=== PATIENT | female | born 1945 | race Two or more races ===

== ENCOUNTER 2019-08-18 17:24 | Emergency (ER) | payer MEDICARE, OTHER ==
[~2019-08-18] VITALS: Ht 162.6 cm; Wt 59.0 kg
[2019-08-18 17:25] VITALS: BP 166/96
--- NOTE | 2019-08-18 17:25 | NUR ---
ED Nurse Note: Patient RAMILA ARMSTRONG from home c/o right lower abdominal pain radiating to her right lower back started today at 1200. Reports nausea/ vomiting x1. Denies diarrhea. No SOB. Afebrile. Pt placed on vehicle monitor technician.
--- NOTE | 2019-08-18 17:30 | NUR ---
ED Nurse Note: IV line established. Blood specimen collected and sent to lab.
[2019-08-18] MEDS ORDERED: Morphine Sulfate 4mg/ml Inj (IV USE ONLY) ONE (17:39)
[2019-08-18] MEDS ORDERED: Morphine Sulfate 4mg/ml Inj (IV USE ONLY) IVP ONE (17:45)
[2019-08-18] MEDS ORDERED: Omnipaque-300 100ml vial INJ PRN (17:45)
[2019-08-18 17:48] LABS: BASOPHILS % (AUTO) 0.6 % (0.0-2.0); EOSINOPHILS % (AUTO) 0.3 % (0.0-3.0); HEMATOCRIT 47.7 % (37.0-47.0); HEMOGLOBIN 15.1 G/DL (12.0-16.0); LYMPHOCYTES % (AUTO) 12.5 % (20.0-45.0); MEAN CORPUSCULAR VOLUME 96 FL (80-99); MONOCYTES % (AUTO) 2.8 % (1.0-10.0); NEUTROPHILS % (AUTO) 83.8 % (45.0-75.0); PLATELET COUNT 236 K/UL (150-450); RED CELL DISTRIBUTION WIDTH 13.3 % (11.6-14.8); WHITE BLOOD COUNT 17.1 K/UL (4.8-10.8)
--- NOTE | 2019-08-18 17:52 | Emergency Room Report ---
History of Present Illness General Chief Complaint: Abdominal Pain Source: Patient Present Illness HPI Disclaimer: Please note that this report is being documented using [employer] technology. This can lead to erroneous entry secondary to incorrect interpretation by the dictating instrument. HPI: 73-year-old female presents for evaluation of abdominal pain. Pain is localized in the right lower quadrant radiates to the back flank. Started 5 hours ago and denies any exacerbating or relieving symptoms. Pain is 10/10. Denies dysuria or hematuria. Denied nausea and vomiting prior to arrival though had one episode of nonbloody nonbilious emesis on arrival here. Currently reports nausea. Denies recent fever, chills, chest pain, shortness of breath, headaches, rash or skin changes. Does not take any medications. Denies alcohol or drug use. History of hysterectomy. PMH: Denies PSH: Hysterectomy total Allergies: Denies Social Hx: Daily tobacco use Allergies: Coded Allergies: No Known Allergies (Unverified , 08/18/19) COVID-19 Screening Contact w/high risk pt: No Recent Travel to affected area: No Experienced COVID-19 symptoms?: No COVID-19 Testing performed MEDICAL ILLUSTRATOR: No Patient History Last Menstrual Period: na Nursing Documentation-PMH Past Medical History: No Stated History Review of Systems All Other Systems: negative except mentioned in HPI Physical Exam Vital Signs Date Time Temp Pulse Resp B/P (MAP) Pulse Ox O2 Delivery O2 Flow Rate FiO2 08/18/19 17:20 97.9 76 16 166/96 (119) 96 Room Air General: Awake and alert, no acute distress HEENT: NC/AT. EOMI. Cardiovascular: RRR. S1 and S2 normal. No murmur appreciated Resp: Normal work of breathing. No cough, wheezing or crackles appreciated Abdomen: Abdomen is soft, nondistended. Tenderness palpation right lower quadrant. No rebound, no masses. Positive Rovsing and obturator sign. Mild right-sided CVA tenderness. Skin: Intact. No abrasions, laceration or rash over the exposed skin MSK: Normal tone and bulk. Moving all extremities. No obvious deformity. Neuro: Awake and alert. Mentating appropriately. Medical Decision Making Diagnostic Impression: Primary Impression: Nephrolithiasis ER Course 73-year-old female presents with acute onset abdominal pain. Differential includes was not limited to appendicitis, bowel obstruction, constipation, pyelonephritis, nephrolithiasis, UTI, mesenteric ischemia to name a few. The patient was placed in her room, line was obtained, IV fluids, pain medication antiemetic started. Broad labs were sent and the patient sent for a CT scan of the abdomen pelvis. Radiology interpretation finds no clinical evidence of acute appendicitis but a noted 1 mm stone at the right UVJ and mild hydronephrosis. Renal function within normal limits, no evidence of urinary tract infection. Patient was given pain medication here and prescription for Zofran, Motrin and breakthrough pain medication to use as needed on an outpatient basis. Will refer to clinic and urology. Discussed reasons to return to the emergency department. She understands and agrees with treatment plan. Laboratory Tests Test 08/18/19 17:33 08/18/19 18:30 White Blood Count 17.1 K/UL (4.8-10.8) H Red Blood Count 5.00 M/UL (4.20-5.40) Hemoglobin 15.1 G/DL (12.0-16.0) Hematocrit 47.7 % (37.0-47.0) H Mean Corpuscular Volume 96 FL (80-99) Mean Corpuscular Hemoglobin 30.3 PG (27.0-31.0) Mean Corpuscular Hemoglobin Concent 31.7 G/DL (32.0-36.0) L Red Cell Distribution Width 13.3 % (11.6-14.8) Platelet Count 236 K/UL (150-450) Mean Platelet Volume 10.3 FL (6.5-10.1) H Neutrophils (%) (Auto) 83.8 % (45.0-75.0) H Lymphocytes (%) (Auto) 12.5 % (20.0-45.0) L Monocytes (%) (Auto) 2.8 % (1.0-10.0) Eosinophils (%) (Auto) 0.3 % (0.0-3.0) Basophils (%) (Auto) 0.6 % (0.0-2.0) Prothrombin Time 10.4 SEC (9.30-11.50) Prothrombin Time INR 0.9 (0.9-1.1) Activated Partial Thromboplast Time 23 SEC (23-33) Sodium Level 138 MMOL/L (136-145) Potassium Level 4.2 MMOL/L (3.5-5.1) Chloride Level 101 MMOL/L (98-107) Carbon Dioxide Level 26 MMOL/L (21-32) Anion Gap 11 mmol/L (5-15) Blood Urea Nitrogen 23 mg/dL (7-18) H Creatinine 1.2 MG/DL (0.55-1.30) Estimated Glomerular Filtration Rate 44.3 mL/min (>60) Glucose Level 177 MG/DL (74-106) H Calcium Level 9.3 MG/DL (8.5-10.1) Total Bilirubin 0.3 MG/DL (0.2-1.0) Aspartate Amino Transferase (AST) 20 U/L (15-37) Alanine Aminotransferase (ALT) 28 U/L (12-78) Alkaline Phosphatase 84 U/L (46-116) Total Protein 7.3 G/DL (6.4-8.2) Albumin 3.9 G/DL (3.4-5.0) Globulin 3.4 g/dL Albumin/Globulin Ratio 1.1 (1.0-2.7) Lipase 168 U/L (73-393) Urine Color Pale yellow Urine Appearance Clear Urine pH 7 (4.5-8.0) Urine Specific [place] 1.010 (1.005-1.035) Urine Protein 1+ (NEGATIVE) H Urine Glucose (UA) Negative (NEGATIVE) Urine Ketones Negative (NEGATIVE) Urine Blood 5+ (NEGATIVE) H Urine Nitrite Negative (NEGATIVE) Urine Bilirubin Negative (NEGATIVE) Urine Urobilinogen Normal MG/DL (0.0-1.0) Urine Leukocyte Esterase Negative (NEGATIVE) Urine RBC Tntc /HPF (0 - 2) H Urine WBC 0-2 /HPF (0 - 2) Urine Squamous Epithelial Cells Occasional /LPF Urine Bacteria Occasional /HPF (NONE) CT/MRI/US Diagnostic Results CT/MRI/US Diagnostic Results : Impression Final Report EXAM: CT Abdomen and Pelvis With Intravenous Contrast CLINICAL HISTORY: ABD PAIN TECHNIQUE: Axial computed tomography images of the abdomen and pelvis with intravenous contrast. CTDI is 5.6 mGy and DLP is 272.1 mGy-cm. One or more of the following dose reduction techniques were used: automated exposure control, adjustment of the mA and/or kV according to patient size, use of iterative reconstruction technique. COMPARISON: None FINDINGS: Lung bases: Mild bibasilar atelectasis. Mediastinum: Small to moderate hiatal hernia. ABDOMEN: Liver: Unremarkable. No mass. Gallbladder and bile ducts: Unremarkable. No calcified stones. No ductal dilation. Pancreas: Unremarkable. No mass. No ductal dilation. Spleen: Small splenule. Adrenals: Nonspecific thickening of the adrenal glands. Kidneys and ureters: Punctate 1 mm stone at the right UVJ. Mild right hydroureteronephrosis. Right perinephric fluid. No hydronephrosis or obstructing stone on the left. Retroaortic left renal vein. Stomach and bowel: Diverticulosis without evidence of diverticulitis. No bowel obstruction. PELVIS: Appendix: Normal appendix. Bladder: Unremarkable. No mass. Reproductive: Prior hysterectomy. ABDOMEN and PELVIS: Intraperitoneal space: Unremarkable. No free air. No significant fluid collection. Bones/joints: Degenerative changes of the spine. No acute fracture. No dislocation. Soft tissues: Unremarkable. Vasculature: Atherosclerotic changes of the vasculature. Mild ectasia of the abdominal aorta. No aortic dissection. Lymph nodes: Unremarkable. No enlarged lymph nodes. IMPRESSION: 1. Punctate 1 mm stone at the right UVJ. Mild right hydroureteronephrosis. Right perinephric fluid. 2. Nonspecific thickening of the adrenal glands. Radiologist: Syeda Adams M.D. Electronically Signed: 08/18/19 18:41 Study ready at 18:32 and initial results transmitted at 18:41 Last Vital Signs Date Time Temp Pulse Resp B/P (MAP) Pulse Ox O2 Delivery O2 Flow Rate FiO2 08/18/19 17:20 97.9 76 16 166/96 (119) 96 Room Air Disposition: HOME, SELF-CARE Condition: Stable Scripts Ondansetron Odt* (ZOFRAN ODT*) 4 Mg Tab.rapdis 4 MG BC EVERY 6 HOURS PRN for Nausea & Vomiting, #10 TAB 0 Refills Prov: Ian Wright MD 08/18/19 Hydrocodone Bit/Acetaminophen 5-325* (NORCO 5-325 TABLET*) 1 Each Tablet 1 TAB ORAL Q6H PRN for FOR PAIN, #10 TAB 0 Refills Prov: Ian Wright MD 08/18/19 Ibuprofen* (MOTRIN*) 600 Mg Tablet 600 MG ORAL Q6H PRN for For Pain, #30 TAB 0 Refills Prov: Ian Wright MD 08/18/19 Ian Wright MD August 18, 2019 17:52
[2019-08-18 17:57] LABS: INR 0.9 (0.9-1.1)
[2019-08-18 17:58] LABS: ANION GAP 11 mmol/L (5-15); BLOOD UREA NITROGEN 23 mg/dL (7-18); CALCIUM 9.3 MG/DL (8.5-10.1); CARBON DIOXIDE 26 MMOL/L (21-32); CHLORIDE 101 MMOL/L (98-107); CREATININE 1.2 MG/DL (0.55-1.30); POTASSIUM 4.2 MMOL/L (3.5-5.1); SODIUM 138 MMOL/L (136-145)
[2019-08-18 18:02] LABS: ALANINE AMINOTRANSFERASE 28 U/L (12-78); ALBUMIN 3.9 G/DL (3.4-5.0); ALBUMIN/GLOBULIN RATIO 1.1 (1.0-2.7); ALKALINE PHOSPHATASE 84 U/L (46-116); ASPARTATE AMINO TRANSFERASE 20 U/L (15-37); BILIRUBIN,TOTAL 0.3 MG/DL (0.2-1.0)
--- NOTE | 2019-08-18 18:11 | NUR ---
ED Nurse Note: Pt was taken to CT via vinnie, accompanied by a tech.
--- NOTE | 2019-08-18 18:25 | NUR ---
ED Nurse Note: Pt returned from CT, not in any distress.
--- NOTE | 2019-08-18 18:35 | NUR ---
ED Nurse Note: Urine specimen collected and sent to lab.
[2019-08-18 18:41] LABS: APPEARANCE,URINE CLEAR; BILIRUBIN, URINE NEGATIVE (NEGATIVE); COLOR,URINE PALE YELLOW; GLUCOSE, URINE (UA) NEGATIVE (NEGATIVE); KETONES,URINE NEGATIVE (NEGATIVE); LEUKOCYTE ESTERASE ,URINE NEGATIVE (NEGATIVE); NITRITE,URINE NEGATIVE (NEGATIVE); PH,URINE 7 (4.5-8.0); PROTEIN,URINE 1+ (NEGATIVE); UROBILINOGEN,URINE NORMAL MG/DL (0.0-1.0)
--- NOTE | 2019-08-18 18:42 | Diagnostic Imaging Report ---
EXAM: CT Abdomen and Pelvis With Intravenous Contrast CLINICAL HISTORY: ABD PAIN TECHNIQUE: Axial computed tomography images of the abdomen and pelvis with intravenous contrast. CTDI is 5.6 mGy and DLP is 272.1 mGy-cm. One or more of the following dose reduction techniques were used: automated exposure control, adjustment of the mA and/or kV according to patient size, use of iterative reconstruction technique. COMPARISON: None FINDINGS: Lung bases: Mild bibasilar atelectasis. Mediastinum: Small to moderate hiatal hernia. ABDOMEN: Liver: Unremarkable. No mass. Gallbladder and bile ducts: Unremarkable. No calcified stones. No ductal dilation. Pancreas: Unremarkable. No mass. No ductal dilation. Spleen: Small splenule. Adrenals: Nonspecific thickening of the adrenal glands. Kidneys and ureters: Punctate 1 mm stone at the right UVJ. Mild right hydroureteronephrosis. Right perinephric fluid. No hydronephrosis or obstructing stone on the left. Retroaortic left renal vein. Stomach and bowel: Diverticulosis without evidence of diverticulitis. No bowel obstruction. PELVIS: Appendix: Normal appendix. Bladder: Unremarkable. No mass. Reproductive: Prior hysterectomy. ABDOMEN and PELVIS: Intraperitoneal space: Unremarkable. No free air. No significant fluid collection. Bones/joints: Degenerative changes of the spine. No acute fracture. No dislocation. Soft tissues: Unremarkable. Vasculature: Atherosclerotic changes of the vasculature. Mild ectasia of the abdominal aorta. No aortic dissection. Lymph nodes: Unremarkable. No enlarged lymph nodes. IMPRESSION: 1. Punctate 1 mm stone at the right UVJ. Mild right hydroureteronephrosis. Right perinephric fluid. 2. Nonspecific thickening of the adrenal glands.
[2019-08-18] MEDS ORDERED: Ketorolac 30mg Inj IV ONE (18:45)
[2019-08-18] MEDS ORDERED: IBUPROFEN600 M1 ORAL (19:00)
[2019-08-18] MEDS ORDERED: NORCO 5-325 TA1 EAC1 ORAL (19:00)
[2019-08-18] MEDS ORDERED: ONDANSETRON ODT4 MG BC (19:00)
--- NOTE | 2019-08-18 19:03 | NUR ---
ED Nurse Note: Recieved report from ENOCH Vences. Patient in bed, no acute distress noted.
--- NOTE | 2019-08-18 19:03 | NUR ---
HAND-OFF: Report given to Vianey KENDALL.
--- NOTE | 2019-08-18 19:06 | NUR ---
ED Nurse Note: ERMD at bedside.
[2019-08-18 19:20] VITALS: BP 145/89
--- NOTE | 2019-08-18 19:20 | NUR ---
ER DISCHARGE NOTE: Patient is cleared to be discharged per ERMD, pt is aox4, on room air, with stable vital signs. pt was given dc and prescription instructions, pt was able to verbalize understanding, pt id band and iv site removed intact without complications. pt is able to ambulate with steady gait. pt took all belongings. pt stable upon discharge.
== END 2019-08-18 19:20 | disposition home or self-care (01) ==
LOC: EDBD 17:24 → EMR 17:51
DX: N20.0 Calculus of kidney (principal); Z90.710 Acquired absence of both cervix and uterus; Z72.0 Tobacco use
CPT/HCPCS: 36415; 74177; 80053; 81003; 83690; 85025; 85610; 85730; 96361; 96374; 96375; 99284; J1885; J2270; J2405; J7030; Q9967